=== PATIENT | male | born 1990 | race Caucasian/White ===

== ENCOUNTER 2020-10-10 16:11 | Emergency (ER) | payer OTHER, SELFPAY ==
--- NOTE | ~2020-10-10 | XR_ITS ---
EXAMINATION: XR hand RT min 3V DATE: 10/10/2020 16:43 INDICATION: Right hand dog bite. Right hand pain and swelling. TECHNIQUE: 3 views of right hand were obtained. COMPARISON: None. FINDINGS: Bone alignment is normal. There is an old healed fracture of diaphysis of fifth metacarpal. No acute fracture. Joint spaces are normal. IMPRESSION: 1. No acute fracture or radiopaque foreign body. Reviewed, dictated and finalized at location A.
[2020-10-10 16:28] VITALS: BP 136/94; PULSE 70; RESP 18; TEMP 36.9; O2SAT 99
[2020-10-10 17:43] VITALS: BP 137/88; PULSE 64; RESP 16; TEMP 36.5; O2SAT 100
--- NOTE | 2020-10-10 18:09 | ED.GENADULT ---
HPI - General Adult General Chief complaint: Wound/Laceration <Sami Adkins PA-C - Last Filed: 10/10/20 19:01> Stated complaint: R hand Dog Bite 5 weeks ago now swelling <Sami Adkins PA-C - Last Filed: 10/10/20 19:01> Time Seen by Provider: 10/10/20 17:31 <Sami Adkins PA-C - Last Filed: 10/10/20 19:01> Source: patient <Sami Adkins PA-C - Last Filed: 10/10/20 19:01> Mode of arrival: ambulatory <DOREEN Conner Last Filed: 10/10/20 19:01> Limitations: no limitations <DOREEN Conner Last Filed: 10/10/20 19:01> History of Present Illness HPI narrative: Patient presents with chief complaint of swelling. Dorsal aspect of the right hand in the area where patient received a bite from Approximately 5 days ago. Patient states that he cleaned the wound with him and felt that it was healing well until yesterday when he noticed more swelling and tenderness to the area. Patient denies any drainage from the wound site. Patient denies any fevers, chills, nausea, vomiting, diarrhea or any other symptoms. Patient does not take anything to alleviate his symptoms. <Sami Adkins PA-C - Last Filed: 10/10/20 19:01> Related Data Allergies/adverse reactions: Allergies Allergy/AdvReac Type Severity Reaction Status Date / Time No Known Allergies Allergy Verified 10/10/20 17:46 <Sami Adkins PA-C - Last Filed: 10/10/20 19:01> Review of Systems Review of Systems: CONSTITUTIONAL: Denies fever, chills, or sweats. EYES: Denies visual changes, redness, or discharge. ENT: Denies rhinorrhea, congestion, sore throat, or otalgia. CARDIOVASCULAR: Denies chest pain, palpitations, or edema. RESPIRATORY: Denies cough or dyspnea. GASTROINTESTINAL: Denies abdominal pain, nausea, vomiting, or diarrhea. GENITOURINARY: Denies dysuria or hematuria. SKIN: Reports redness and swelling denies rash or itching. MUSCULOSKELETAL: Denies back pain, joint pain, or myalgia. NEUROLOGIC: Denies headache, numbness, dizziness, or weakness. PSYCHIATRIC: Denies anxiety or depression. <Sami Adkins PA-C - Last Filed: 10/10/20 19:01> Exam Narrative: GENERAL: Well-appearing, well-nourished, and in no acute distress. HEAD: Normocephalic, atraumatic. EYES: PERRLA and EOMI. CHEST: Clear to auscultation. No respiratory distress. No wheezes rales or rhonchi HEART: Regular rate and rhythm. No murmur heard. Normal peripheral pulses. EXTREMITIES: Swelling and faint erythema to the dorsal aspect of the right hand with increased warmth. Healed wound to the volar aspect at the base of the third digit. No abscess palpated. SKIN: Warm, dry, no rash. NEURO: No focal deficits. Alert and oriented x3. PSYCH: Normal mood and affect. <Sami Adkins PA-C - Last Filed: 10/10/20 19:01> Course Vital Signs Vital signs: Vital Signs Temperature 98.5 F 10/10/20 16:28 Pulse Rate 70 10/10/20 16:28 Respiratory Rate 18 10/10/20 16:28 Blood Pressure 136/94 H 10/10/20 16:28 Pulse Oximetry 99 10/10/20 16:28 Temperature 97.7 F 10/10/20 17:43 Pulse Rate 88 10/10/20 18:52 Respiratory Rate 16 10/10/20 18:52 Blood Pressure 132/78 10/10/20 18:52 Pulse Oximetry 100 10/10/20 18:52 <Sami Adkins PA-C - Last Filed: 10/10/20 19:01> Vital Signs Temperature 98.5 F 10/10/20 16:28 Pulse Rate 70 10/10/20 16:28 Respiratory Rate 18 10/10/20 16:28 Blood Pressure 136/94 H 10/10/20 16:28 Pulse Oximetry 99 10/10/20 16:28 Temperature 97.7 F 10/10/20 17:43 Pulse Rate 88 10/10/20 18:52 Respiratory Rate 16 10/10/20 18:52 Blood Pressure 132/78 09/02/21 18:52 Pulse Oximetry 100 10/10/20 18:52 <Nancy Fregoso MD - Last Filed: 10/10/20 20:56> Medical Decision Making MDM Narrative Medical decision making narrative: Discussed with the patient at this time it appears to be cellulitis however instructed him the importance of close follow-up with
[2020-10-10] MEDS: TETANUS,DIPHTHERIA,AC PERTUSSIS ADULT (0.5 ML) BOOSTRIX IM (18:15)
[2020-10-10 18:52] VITALS: BP 132/78; PULSE 88; RESP 16; O2SAT 100
--- NOTE | 2020-10-10 20:59 | PC.NURSE ---
salome contacted charge nurse and let us know that the patient scripts did not transfer to them. This rn gave a verbal prescription.
== END 2020-10-10 18:54 | disposition home or self-care (01) ==
PROVIDERS: Emergency Provider General Practice
DX: L03.113 Cellulitis of right upper limb (principal); Z23 Encounter for immunization
CPT/HCPCS: 73130; 90471; 90715; 99283